=== PATIENT | male | born 1985 | race Two or more races ===

== ENCOUNTER 2016-06-10 15:06 | Emergency (ER) | payer OTHER | END 2016-06-10 16:16 | disposition home or self-care (01) | LOC: ED 15:06 | DX: S29.012A Strain of muscle and tendon of back wall of thorax, initial encounter (principal); X50.0XXA Overexertion from strenuous movement or load, initial encounter; Y93.H3 Activity, building and construction; Y92.61 Building [any] under construction as the place of occurrence of the external cause; Y99.0 Civilian activity done for income or pay ==